=== PATIENT | female | born 1950 | race Caucasian/White ===

== ENCOUNTER → 2024-03-25 10:51 | Outpatient (REF) | payer OTHER, SELFPAY | LOC: HWRAD 10:51 | PROVIDERS: ATTENDING PHYSICIAN Family Medicine | DX: M25.511 Pain in right shoulder (principal) | CPT/HCPCS: 73030 ==

== ENCOUNTER → 2024-04-15 08:26 | Outpatient (REF) | payer OTHER, SELFPAY | LOC: RAD 08:26 | PROVIDERS: ATTENDING PHYSICIAN Family Medicine | DX: I73.9 Peripheral vascular disease, unspecified (principal) | CPT/HCPCS: 93970 ==

== ENCOUNTER → 2024-05-13 06:40 | Outpatient (REF) | payer OTHER, SELFPAY | LOC: RAD 06:40 | PROVIDERS: ATTENDING PHYSICIAN Family Medicine | DX: I73.9 Peripheral vascular disease, unspecified (principal) | CPT/HCPCS: 93922; 93925 ==

== ENCOUNTER → 2024-05-17 07:30 | Outpatient (REF) | payer OTHER, SELFPAY | LOC: MRI 3T 07:30 | PROVIDERS: ATTENDING PHYSICIAN Specialist; FAMILY PHYSICIAN Family Medicine | DX: M25.511 Pain in right shoulder (principal) | CPT/HCPCS: 73221 ==

== ENCOUNTER 2024-06-17 08:03 | Outpatient (RCR) | payer OTHER, SELFPAY | END 2024-06-17 23:59 | disposition home or self-care (01) | LOC: RPT 08:03 | PROVIDERS: ATTENDING PHYSICIAN Specialist; FAMILY PHYSICIAN Nurse Practitioner Adult Health | DX: M75.41 Impingement syndrome of right shoulder (principal); M75.01 Adhesive capsulitis of right shoulder; Z73.6 Limitation of activities due to disability | CPT/HCPCS: 97110; 97162 ==

== ENCOUNTER → 2024-07-07 09:19 | Outpatient (REF) | payer OTHER, SELFPAY | LOC: DHVS 09:19 | PROVIDERS: ATTENDING PHYSICIAN Surgery Vascular Surgery; FAMILY PHYSICIAN Family Medicine | DX: Z13.6 Encounter for screening for cardiovascular disorders (principal) | CPT/HCPCS: 76770 ==

== ENCOUNTER 2024-07-23 08:53 | Outpatient (RCR) | payer OTHER, SELFPAY | END 2024-07-23 23:59 | disposition home or self-care (01) | LOC: RPT 08:53 | PROVIDERS: ATTENDING PHYSICIAN Specialist; FAMILY PHYSICIAN Nurse Practitioner Adult Health | DX: M75.41 Impingement syndrome of right shoulder (principal); M75.01 Adhesive capsulitis of right shoulder; Z73.6 Limitation of activities due to disability | CPT/HCPCS: 97010; 97110; 97112; 97140 ==

== ENCOUNTER 2024-07-23 10:46 | Outpatient (RCR) | payer OTHER, SELFPAY | END 2024-07-23 23:59 | disposition home or self-care (01) | LOC: CRHB 10:46 | PROVIDERS: ATTENDING PHYSICIAN Surgery Vascular Surgery | DX: I70.212 Atherosclerosis of native arteries of extremities with intermittent claudication, left leg (principal) | CPT/HCPCS: 93668 ==

== ENCOUNTER 2024-08-11 09:11 | Outpatient (RCR) | payer OTHER, SELFPAY | END 2024-08-11 23:59 | disposition home or self-care (01) | LOC: RPT 09:11 | PROVIDERS: ATTENDING PHYSICIAN Specialist; FAMILY PHYSICIAN Nurse Practitioner Adult Health | DX: M75.41 Impingement syndrome of right shoulder (principal); M75.01 Adhesive capsulitis of right shoulder; Z73.6 Limitation of activities due to disability | CPT/HCPCS: 97010; 97110; 97112; 97140 ==

== ENCOUNTER 2024-08-11 10:38 | Outpatient (RCR) | payer OTHER, SELFPAY | END 2024-08-11 23:59 | disposition home or self-care (01) | LOC: CRHB 10:38 | PROVIDERS: ATTENDING PHYSICIAN Surgery Vascular Surgery | DX: I70.212 Atherosclerosis of native arteries of extremities with intermittent claudication, left leg (principal) | CPT/HCPCS: 93668 ==

== ENCOUNTER 2024-09-22 10:42 | Outpatient (RCR) | payer OTHER, SELFPAY | END 2024-09-22 23:59 | disposition home or self-care (01) | LOC: CRHB 10:42 | PROVIDERS: ATTENDING PHYSICIAN Surgery Vascular Surgery | DX: I70.212 Atherosclerosis of native arteries of extremities with intermittent claudication, left leg (principal) | CPT/HCPCS: 93668 ==

== ENCOUNTER 2024-09-29 10:42 | Outpatient (RCR) | payer OTHER, SELFPAY | END 2024-09-29 13:59 | disposition home or self-care (01) | LOC: CRHB 10:42 | PROVIDERS: ATTENDING PHYSICIAN Internal Medicine Cardiovascular Disease; FAMILY PHYSICIAN Family Medicine | DX: I70.212 Atherosclerosis of native arteries of extremities with intermittent claudication, left leg (principal) | CPT/HCPCS: 93668 ==

== ENCOUNTER → 2025-01-20 14:27 | Outpatient (REF) | payer OTHER, SELFPAY | LOC: RAD 14:27 | PROVIDERS: ATTENDING PHYSICIAN Family Medicine | DX: K59.09 Other constipation (principal) | CPT/HCPCS: 74019 ==

== ENCOUNTER → 2025-02-05 10:30 | Outpatient (REF) | payer OTHER, SELFPAY | LOC: RAD 10:30 | PROVIDERS: ATTENDING PHYSICIAN Surgery Vascular Surgery; FAMILY PHYSICIAN Family Medicine | DX: I73.9 Peripheral vascular disease, unspecified (principal) | CPT/HCPCS: 93922; 93925 ==

== ENCOUNTER 2025-02-24 19:11 | Emergency (ER) | payer OTHER, SELFPAY ==
[2025-02-24 19:19] VITALS: BP 138/57
--- NOTE | 2025-02-24 21:38 | ED.GENMED ---
History of Present Illness
General
Chief Complaint: Headache
Source: patient
Exam Limitations: none
Time Seen by Provider: 02/24/25 21:15
History of Present Illness
History of Present Illness:
74yoF with a history of hypertension, hyperlipidemia, and uterine cancer 2 years ago s/p radiation and hysterectomy presenting with her for evaluation of headaches. Patient reports new onset headaches over the past 2 to 3 weeks. Headaches
are located in the right occipital region. She reports constant pain with intermittent severe shooting pains that seem to random and radiate to the neck. She initially had some whole body pain but this has resolved. Headache is currently a 7/10
in severity. She was seen by pain management today who thought that her symptoms were originating from her neck. She was given prescriptions for prednisone, gabapentin, and Celebrex which she started today. She has an MRI scheduled for her
cervical spine on 03/06/25. She denies any rash, fevers, neck stiffness, photophobia, visual changes, head trauma.
Past History
Past History
ED Past Medical History: None
ED Past Surgical History: None
Phy Exam
General Physical Exam
General Presentation: well appearing and no apparent distress
General Skin: warm and dry
General Habitus: normal
General Mental: alert
ENT Exam
ENT Exam: TM's normal, neck supple, normocephalic and other (No scalp rash)
Additional ENT: No meningismus
Eye Exam
Eye Exam: PERRL, EOMI and conjunctiva normal
Pulmonary Exam
Pulmonary Exam: no respiratory distress
Neurological Exam
Neurological Exam: alert and no motor deficits
[place] Coma Scale
Eye Opening: Spontaneous
Verbal Response: Oriented
Motor Response: Obeys Commands
GCS Total Score: 15
Skin Exam
Skin Exam: normal color and warm/dry
Psychiatric Exam
Psychiatric Exam: normal mood/affect
Course
Orders/Labs/Results
Orders:
Orders
02/24/25 21:36
CT Head W/o Iv Contrast Urgent
Comment:
Reason For Exam: new onset headaches
0.9% Sodium Chloride 1000 ml [Nss] 1,000 ml IV BOLUS
Acetaminophen 1000MG/100Ml [Ofirmev] 1,000 mg in 100 ml IV ONCE
Acetaminophen IV Indication:: ED Narcotic Naive Pt-ONCE
Diphenhydramine [Benadryl] 12.5 mg IV NOW STA
Magnesium Sulfate 2 Gram/50 ml [Magnesium Sulfate] 2 gram in 50 ml IV NOW
02/24/25 22:02
Metoclopramide [Reglan] 5 mg PO NOW STA
02/24/25 22:06
Complete Blood Count/With Diff Urgent
Comprehensive Metabolic Panel Urgent
02/24/25 23:32
Ketorolac [Toradol] 15 mg IV NOW STA
Abnormal Lab Results
02/24/25
22:06
RBC 3.65 L 10^6/uL
(4.20-5.40)
Hgb 11.3 L g/dL
(12.0-16.0)
Hct 31.5 L %
(37.0-47.0)
MPV 11.1 H fL
(7.4-10.4)
Absolute Lymphs (auto) 0.8 L 10^3/uL
(1.2-3.4)
Neutrophils % 84.9 H %
(42.2-75.2)
Lymphocytes % 11.2 L %
(20.5-51.1)
Glucose 136 H mg/dl
(70-99)
02/24/25 22:06
02/24/25 22:06
Vital Signs
Initial and Last Documented VS:
Initial Vital Signs
Temp Pulse Resp BP Pulse Ox
98.2 F 77 16 138/57 98
02/24/25 19:19 02/24/25 19:19 02/24/25 19:19 02/24/25 19:19 02/24/25 19:19
Last Documented Vital Signs
Temp Pulse Resp BP Pulse Ox
98.2 F 61 16 128/74 99
02/24/25 19:19 02/24/25 23:58 02/24/25 23:58 02/24/25 23:58 02/24/25 23:58
MDM/Problems Addressed
Differential Diagnosis Includes:
74yoF here with new headaches x 2-3 weeks. Located in the R occipital region and radiates to the neck. Intermittent shooting pains. Saw pain management today and has an MRI cervical spine scheduled in 10 days. VSS. She is well appearing in no
distress. No nuchal rigidity or focal neuro deficits noted. Differential diagnosis includes but is not limited to: tension headache, migraine, occipital neuralgia, cervicogenic headache, mass, no rash to suggest shingles, doubt temporal arteritis as
pain is located posteriorly
Initial ED plan: Check CBC, CMP, and CT head. IV migraine cocktail and reassess.
*Critical Care Note
Total Time (30-74mins, 75-104mins- exclusive of procedures): Not Applicable
Update Note
Update Note:
Labs unremarkable and CT head is negative for acute findings. Patient is feeling improved on reassessment although continues to have intermittent shooting pains. No indication for hospitalization. Advised f/u with PCP and neurology. She was started
on prednisone and gabapentin by pain management today. ED return precautions reviewed. Patient discharged in stable condition.
ED Attending Note
-
Portions of this chart may have been created with voice recognition software.� Occasional wrong word or��sound alike� substitutions may have occurred due to the inherent limitations of voice recognition software.
Discharge Plan
Departure
Patient Disposition: Home (Routine Discharge)
Date of Disposition: 02/24/25
Time of Disposition: 23:32
Patient with high blood pressure during this ER visit?: No
Discharge Problem:
Acute headache
Instructions: Headache, Adult (DC)
Prescriptions:
No Action
atorvastatin [Lipitor] 40 mg Tablet
40 mg PO DAILY
sertraline 100 mg Tablet
100 mg PO DAILY
aspirin 81 mg Tablet,Delayed Release (Dr/Ec)
81 mg PO DAILY
calcium carbonate [Calcium 600] 600 mg calcium (1,500 mg) Tablet
600 mg PO DAILY
amlodipine 10 mg Tablet
10 mg PO DAILY
esomeprazole magnesium 40 mg Capsule,Delayed Release(Dr/Ec)
40 mg PO DAILY
raloxifene [Evista] 60 mg Tablet
60 mg PO DAILY
albuterol sulfate [ProAir HFA] 90 mcg/actuation Hfa Aerosol Inhaler
2 puff INHALATION Q6H PRN (Reason: asthma)
oxybutynin chloride 5 mg Tablet
5 mg PO DAILY
lisinopril 40 mg Tablet
40 mg PO DAILY
fluticasone propionate [Flonase] 50 mcg/actuation [place],Suspension
1 spray INTRANASAL PRN PRN (Reason: allergies)
hydrochlorothiazide 12.5 mg Tablet
12.5 mg PO DAILY
cholecalciferol (vitamin D3) [Vitamin D3] 50 mcg (2,000 unit) Capsule
50 mcg PO DAILY
Referrals:
Fabián Melton MD [Active, Neurology]
Danisha Adorno DO [Family Provider, Family Practice]
Activity Restrictions/Additional Instructions:
Please follow-up with your family doctor and neurology. Return to the ER with any new or worsening symptoms.
Interventions
Interventions:
*Risk Screen - Suicide Last Done: 02/24/25 19:19
*General Assessment Last Done: 02/24/25 22:11
*Neglect/Abuse Screening Last Done: 02/24/25 19:19
*ED- Fall Risk Assessment Last Done: 02/24/25 22:11
*ED COVID-19 Vaccine History Last Done: 02/24/25 22:11
*Nursing Disposition Last Done: 02/24/25 23:58
ED- Neurological Assessment Last Done: 02/24/25 22:11
Discharge Date and Time
Discharge Date/Time: 02/24/25 23:59
Print Language: PU[place] RICAN
[2025-02-24 22:02] VITALS: BP 130/44
[2025-02-24] MEDS: MAGNESIUM SULFATE 50 IV (22:07)
[2025-02-24] MEDS: OFIRMEV 100 IV (22:07)
[2025-02-24] MEDS: NSS 1000 IV (22:07)
[2025-02-24] MEDS: BENADRYL 12.5 MG IV (22:08)
[2025-02-24 22:10] VITALS: BMI 23.8
[2025-02-24] MEDS: REGLAN 5 MG PO (22:17)
[2025-02-24 22:33] LABS: % Basophils 0.4 % (0-2); % Immature Granulocytes 0.3 % (0-0.5); % Lymphocytes 11.2 % (20.5-51.1); % Monocytes 3.2 % (1.7-9.3); % Neutrophils 84.9 % (42.2-75.2); Absolute Lymphocytes 0.8 10^3/uL (1.2-3.4); Absolute Monocytes 0.2 10^3/uL (0.1-0.6); Absolute Neutrophils 6.1 10^3/uL (1.4-6.5); Hematocrit 31.5 % (37.0-47.0); Hemoglobin 11.3 g/dL (12.0-16.0); Mean Corp Hgb Conc. 35.9 g/dL (33.0-37.0); Mean Corpuscular Volume 86.3 fL (81.0-99.0); Mean Platelet Volume 11.1 fL (7.4-10.4); Nucleated Red Blood Cells % 0 %; Platelet Count 200 10^3/uL (130-400); Red Blood Cell Count 3.65 10^6/uL (4.20-5.40); Red Cell Dist. Width 13.2 % (11.5-14.5); White Blood Cell Count 7.2 10^3/uL (4.8-10.8)
[2025-02-24 22:38] LABS: ALT (SGPT) 24 U/L (0-35); AST (SGOT) 29 U/L (14-36); Albumin 4.1 g/dl (3.5-5.0); Alkaline Phosphatase 75 U/L (38-126); Blood Urea Nitrogen 14 mg/dl (7-17); Calcium 9.1 mg/dl (8.4-10.2); Carbon Dioxide 24 mmol/L (22-30); Chloride 107 mmol/L (98-107); Estimated Creatinine Clearance 62 ml/min; Glucose 136 mg/dl (70-99); Potassium 3.9 mmol/L (3.5-5.1); Sodium 136 mmol/L (135-145); Total Bilirubin 0.5 mg/dl (0.2-1.3); Total Protein 7.1 g/dl (6.3-8.2); eGFR > 60.00
[2025-02-24] MEDS: TORADOL 15 MG IV (23:52)
[2025-02-24 23:58] VITALS: BP 128/74
== END 2025-02-24 23:59 | disposition home or self-care (01) ==
LOC: EMR 19:11
PROVIDERS: Physician Assistant; EMERGENCY PHYSICIAN Emergency Medicine; FAMILY PHYSICIAN Family Medicine
DX: R51.9 Headache, unspecified (principal); I10 Essential (primary) hypertension; E78.00 Pure hypercholesterolemia, unspecified; Z85.42 Personal history of malignant neoplasm of other parts of uterus; Z92.3 Personal history of irradiation
CPT/HCPCS: 99284; 96365; 96375; 70450; 80053; 85025

== ENCOUNTER 2025-03-01 15:01 | Inpatient (IN) | payer OTHER, SELFPAY ==
[2025-02-27 22:25] VITALS: BP 133/65
--- NOTE | 2025-02-27 23:07 | ED.GENMED ---
History of Present Illness
General
Chief Complaint: Headache
Source: patient
Exam Limitations: none
Time Seen by Provider: 02/27/25 23:06
Nursing documentation reviewed up to this point in time: agreed with
History of Present Illness
History of Present Illness:
Vitor 74-year-old female presents the emergency department right-sided headache. She states that she has been having a headache for at least 2 weeks. She saw her pain management 2 prescribed her low-dose steroids at gabapentin. She states that
did not help. She came to the emergency department and was treated with a headache cocktail which relieved her symptoms. She states that for almost 36 hours after she was discharged from the ER, she was pain-free. She states that she felt
energetic and was able to clean the house and resume her normal activities. She reports that yesterday the pain came back and progressively worsened to its stayed prior to her ER visit. Her pain management doctor ordered an MRI scheduled for February
. She saw her PCP this morning who changed the low-dose steroids to a higher dose of prednisone. He also added an MRI of the brain. Patient states that the pain has been progressively worsening so she came into the emergency department for
evaluation.
Past History
Past History
ED Past Medical History: None
ED Past Surgical History: None
Phy Exam
General Physical Exam
General Presentation: well appearing and no apparent distress
General Skin: warm and dry
General Habitus: normal
General Mental: alert
General Hydration: appears well hydrated
ENT Exam
ENT Exam: EOMI, pharynx normal, neck supple, normocephalic and other (No nuchal rigidity)
Eye Exam
Eye Exam: PERRL, cornea clear and conjunctiva normal
Cardiovascular Exam
Cardiovascular Exam: regular rate/rhythm, no edema, no murmur and normal peripheral pulses
Pulmonary Exam
Pulmonary Exam: lungs clear, no respiratory distress, no rales, no crackles, no rhonchi, no stridor, no wheezing and no cough
Gastrointestinal Exam
Gastrointestinal Exam: normal bowel sounds, non tender, soft, no organomegaly, no pulsatile mass and non distended
Neurological Exam
Neurological Exam: alert, oriented x3, no motor deficits and speech normal
Musculoskeletal Exam
Musculoskeletal Exam: full ROM and no edema
Skin Exam
Skin Exam: normal color, warm/dry, no rash and no petechia
Psychiatric Exam
Psychiatric Exam: normal mood/affect
Course
Orders/Labs/Results
Orders:
Orders
02/27/25 23:29
0.9% Sodium Chloride 1000 ml [Nss] 1,000 ml IV BOLUS
Diphenhydramine [Benadryl] 25 mg IV NOW STA
Ketorolac [Toradol] 15 mg IV NOW STA
Metoclopramide [Reglan] 10 mg IV NOW STA
02/27/25 23:52
Complete Blood Count/With Diff Urgent
Comprehensive Metabolic Panel Urgent
[place] Progressive Urgent
PTT Urgent
Prothrombin Time Urgent
Abnormal Lab Results
02/27/25
23:52
RBC 3.43 L 10^6/uL
(4.20-5.40)
Hgb 10.6 L g/dL
(12.0-16.0)
Hct 29.7 L %
(37.0-47.0)
MPV 10.7 H fL
(7.4-10.4)
Absolute Lymphs (auto) 1.0 L 10^3/uL
(1.2-3.4)
Lymphocytes % 16.3 L %
(20.5-51.1)
Monocytes % 10.4 H %
(1.7-9.3)
Chloride 110 H mmol/L
(98-107)
Creatinine 0.5 L mg/dL
(0.6-1.0)
02/27/25 23:52
02/27/25 23:52
Vital Signs
Initial and Last Documented VS:
Initial Vital Signs
Temp Pulse Resp BP Pulse Ox
98.4 F 81 18 133/65 98
02/27/25 22:25 02/27/25 22:25 02/27/25 22:25 02/27/25 22:25 02/27/25 22:25
Last Documented Vital Signs
Temp Pulse Resp BP Pulse Ox
98.4 F 81 18 133/65 98
02/27/25 22:25 02/27/25 22:25 02/27/25 22:25 02/27/25 22:25 02/27/25 22:25
*Pulse Oximetry
Patient hypoxic: no (Pulse ox is 98% on room air)
*Critical Care Note
Total Time (30-74mins, 75-104mins- exclusive of procedures): Not Applicable
Update Note
Update Note:
Patient was sleeping for several hours. We awaken her to see how she was doing and she states that the headache has returned. She states that that has been present off and on for weeks. She does have an MRI scheduled for March 06. Patient does
not feel well enough to be discharged. She is to be admitted to the hospitalist service.
ED Attending Note
-
Portions of this chart may have been created with voice recognition software.� Occasional wrong word or��sound alike� substitutions may have occurred due to the inherent limitations of voice recognition software.
Discharge Plan
Departure
Patient Disposition: Admit
Date of Disposition: 02/28/25
Time of Disposition: 04:13
Admit to: Telemetry
Presentation/result/management discussed w/ accepting MD/DO: Hospitalist
Discharge Problem:
Headache
Instructions: Headache, Adult (DC)
Prescriptions:
No Action
atorvastatin [Lipitor] 40 mg Tablet
40 mg PO DAILY
sertraline 100 mg Tablet
100 mg PO DAILY
aspirin 81 mg Tablet,Delayed Release (Dr/Ec)
81 mg PO DAILY
calcium carbonate [Calcium 600] 600 mg calcium (1,500 mg) Tablet
600 mg PO DAILY
amlodipine 10 mg Tablet
10 mg PO DAILY
esomeprazole magnesium 40 mg Capsule,Delayed Release(Dr/Ec)
40 mg PO DAILY
raloxifene [Evista] 60 mg Tablet
60 mg PO DAILY
albuterol sulfate [ProAir HFA] 90 mcg/actuation Hfa Aerosol Inhaler
2 puff INHALATION Q6H PRN (Reason: asthma)
oxybutynin chloride 5 mg Tablet
5 mg PO DAILY
lisinopril 40 mg Tablet
40 mg PO DAILY
fluticasone propionate [Flonase] 50 mcg/actuation [place],Suspension
1 spray INTRANASAL PRN PRN (Reason: allergies)
hydrochlorothiazide 12.5 mg Tablet
12.5 mg PO DAILY
cholecalciferol (vitamin D3) [Vitamin D3] 50 mcg (2,000 unit) Capsule
50 mcg PO DAILY
Referrals:
Danisha Adorno DO [Family Provider, Family Practice]
Interventions
Interventions:
*Risk Screen - Suicide Last Done: 02/27/25 22:25
*General Assessment Last Done: 02/27/25 22:25
*Neglect/Abuse Screening Last Done: 02/27/25 22:25
*ED- Fall Risk Assessment Last Done: 02/27/25 22:25
*ED COVID-19 Vaccine History Last Done: 02/27/25 22:25
ED- Neurological Assessment Last Done: 02/27/25 23:15
Discharge Date and Time
Print Language: GE[place]GI[place]
[2025-02-27] MEDS: NSS 1000 IV (23:44)
[2025-02-27] MEDS: BENADRYL 25 MG IV (23:44)
[2025-02-27] MEDS: REGLAN 10 MG IV (23:45)
[2025-02-27] MEDS: TORADOL 15 MG IV (23:45)
[2025-02-28] LABS: % Basophils 0.3 % (0-2); % Eosinophils 0.2 % (0-6); % Immature Granulocytes 0.3 % (0-0.5); % Lymphocytes 16.3 % (20.5-51.1); % Monocytes 10.4 % (1.7-9.3); % Neutrophils 72.5 % (42.2-75.2); Absolute Monocytes 0.6 10^3/uL (0.1-0.6); Absolute Neutrophils 4.3 10^3/uL (1.4-6.5); Hematocrit 29.7 % (37.0-47.0); Hemoglobin 10.6 g/dL (12.0-16.0); Mean Corp Hgb Conc. 35.7 g/dL (33.0-37.0); Mean Corpuscular Hgb 30.9 pg (27.0-31.0); Mean Corpuscular Volume 86.6 fL (81.0-99.0); Mean Platelet Volume 10.7 fL (7.4-10.4); Nucleated Red Blood Cells % 0 %; Platelet Count 206 10^3/uL (130-400); Red Blood Cell Count 3.43 10^6/uL (4.20-5.40); Red Cell Dist. Width 13.3 % (11.5-14.5)
[2025-02-28 00:09] LABS: INR 1.06; PT 14.1 Sec (11.4-14.6)
[2025-02-28 00:11] LABS: APTT 23.4 Sec (23.4-35.0)
[2025-02-28 00:18] LABS: ALT (SGPT) 25 U/L (0-35); AST (SGOT) 34 U/L (14-36); Albumin 3.8 g/dl (3.5-5.0); Alkaline Phosphatase 57 U/L (38-126); Blood Urea Nitrogen 12 mg/dl (7-17); Calcium 8.8 mg/dl (8.4-10.2); Carbon Dioxide 23 mmol/L (22-30); Chloride 110 mmol/L (98-107); Glucose 97 mg/dl (70-99); Potassium 3.8 mmol/L (3.5-5.1); Sodium 138 mmol/L (135-145); Total Bilirubin 0.7 mg/dl (0.2-1.3); Total Protein 6.7 g/dl (6.3-8.2); eGFR > 60.00
[2025-02-28 04:26] VITALS: BP 146/49
--- NOTE | 2025-02-28 04:47 | HPS.HSE ---
Family Physician
-
Family Physician: Danisha Adorno
Chief Complaint
-
Headache
History of Present Illness
This is a 74-year-old female with past medical history significant for hypertension, hyperlipidemia, uterine cancer status post hysterectomy and radiation therapy presents to the emergency department for new onset headaches over the past 3 weeks.
Patient denies prior history of headaches. Over the last 3 weeks she has been having headaches that are located in the right occipital region. She reports no history of headache syndromes and rarely has headaches. She reports gradual onset over
the last 3 weeks where she has intermittent episodes but now seems to have had 2 severe episodes over the last 4 days. She reports the headache is in the right parietal and occipital region and is sharp stabbing and radiates down to the neck. She
denies any temporal involvement. She denies any vision changes. She denies having any fevers or chills. She reports that she has had some generalized aches and pains associated with the headaches when it started but not currently. She denies any
rash. Patient denies any sinus congestion, rhinorrhea or sore throat. She denies any focal logical deficits such as numbness tingling weakness or difficulty with balance. She was seen by pain management at to have symptoms that is consistent with
occipital neuralgia. She completed a prednisone taper, she is taking gabapentin 600 twice daily as well as Celebrex. She has an MRI of the cervical spine pending. When she was seen in the emergency department on February she had a CT scan which
was negative for any acute intracranial process.
Today patient was afebrile, blood pressure was 146/50 with pulse of 57 satting 97% on room air.
CBC was unremarkable. Electrolytes BUN/creatinine were normal.
She had received Toradol, Benadryl, normal saline and Reglan. According to spouse patient pain improving on for out of sleep but now she has a constant dull ache.
Medical History
Past Medical History
Past Medical History: Reports Cancer (Uterine cancer status post radiation and hysterectomy), HTN and Hypercholesterolemia
Past Surgical History: Reports Gynocological (Hysterectomy)
Social History
Tobacco: Non-smoker
Alcohol: None
Drug: None
Personal:
Living: With Family
Employment: Retired
Family History
Family History: Not pertinent
Allergies / Home Medications
Allergies reflects when Allergies were last updated in [facility].
Home Medications with original date entered in [facility]
Allergy/Medication List:
Allergies
Allergy/AdvReac Type Severity Reaction Status Date / Time
No Known Allergies Allergy Verified 02/24/25 19:19
Home Medications
albuterol sulfate 90 mcg/actuation aerosol inhaler (ProAir HFA) 2 puff inhalation Q6H PRN asthma 01/02/23
amlodipine 10 mg tablet 10 mg PO DAILY 01/02/23
aspirin 81 mg tablet,delayed release 81 mg PO DAILY 01/02/23
atorvastatin 40 mg tablet (Lipitor) 40 mg PO DAILY 01/02/23
calcium carbonate (Calcium 600) 600 mg PO DAILY 01/02/23
cholecalciferol (vitamin D3) 50 mcg (2,000 unit) capsule (Vitamin D3) 50 mcg PO DAILY 01/02/23
esomeprazole magnesium 40 mg capsule,delayed release 40 mg PO DAILY 01/02/23
fluticasone propionate 50 mcg/actuation nasal spray,suspension 1 spray intranasal PRN PRN allergies 01/02/23
hydrochlorothiazide 12.5 mg tablet 12.5 mg PO DAILY 01/02/23
lisinopril 40 mg tablet 40 mg PO DAILY 01/02/23
oxybutynin chloride 5 mg tablet 5 mg PO DAILY 01/02/23
raloxifene 60 mg tablet (Evista) 60 mg PO DAILY 01/02/23
sertraline 100 mg tablet 100 mg PO DAILY 01/02/23
Review of Systems
-
History Source: Patient
Constitutional: Reports No Symptoms
EENT: Reports No Symptoms
Respiratory: Reports No Symptoms
Cardiac: Reports No Symptoms
Abdomen/GI: Reports No Symptoms
: Reports No Symptoms
Musculoskeletal: Reports No Symptoms
Skin: Reports No Symptoms
Neurological: Reports Headache
Endocrine: Reports No Symptoms
Hematologic/Lymphatic: Reports No Symptoms
Psych: Reports No Symptoms
Physical Exam
Vital Signs
Vital Signs
Temp Pulse Resp BP Pulse Ox
98.4 F 57 16 146/49 97
02/27/25 22:25 02/28/25 04:26 02/28/25 04:26 02/28/25 04:26 02/28/25 04:26
Physical Exam
General: Well Developed, Well Nourished and No Apparent Distress
HEENT: NormoCephalic, Moist mucous membranes and Atraumatic
Respiratory: Clear
Cardiac: S1/S2 and Regular Rhythm; No Murmur or Rub
GI: Soft, Non Tender, Non Distended and Normal Bowel Sounds; No Organomegaly
Rectal: Deferred by Provider
Musculoskeletal: No Clubbing, No Cyanosis and No Edema
Skin: No Rash
Neuro: Nonfocal/grossly intact
Hematologic/Lymphatic: No Lymphadenopathy
Psych: Anxious
Laboratory Results
-
02/27/25 23:52
02/27/25 23:52
Laboratory Results
PT 14.1 Sec (11.4-14.6) 02/27/25 23:52
INR 1.06 02/27/25 23:52
APTT 23.4 Sec (23.4-35.0) 02/27/25 23:52
Total Bilirubin 0.7 mg/dl (0.2-1.3) 02/27/25 23:52
AST 34 U/L (14-36) 02/27/25 23:52
ALT 25 U/L (0-35) 02/27/25 23:52
Alkaline Phosphatase 57 U/L (38-126) 02/27/25 23:52
Data Reviewed
-
CT Scan: Report Reviewed by me
Lab Data: Labs Reviewed by me
Old Records: Reviewed
Impression/Plan
-
IMPRESSION:
74 y.o female with new onset headaches localized to the right parietal and occipital region with sharp/stabbing quality and shooting sensation to the neck. No focal deficits. No rash. No fevers, chills or neck stiffness. No tearing or
conjunctival injection. CT head negative for acute intracranial process. Has outpatient w/u raising concern for occipital neuralagia. Differential includes migraine, GCA, unlikely dissection given duration of symptoms and otherwise stable.
PLAN:
Headache - Occipital neuralgia/cervicogenic headache vs migraines or GCA
- admit to med/surg
- continue with analgesic measures IV porchloperazine + benadryl and dexamethasone
- prn toradol
- check esr
- CT negative, no indication for CTA/MRI
- neurology consultation
DVT PPX - SCDs
Code Status - Full Code
[2025-02-28] MEDS: OFIRMEV 100 IV (05:44)
[2025-02-28] MEDS: FLUSH (NSS) 1 FLUSH IV (05:45)
[2025-02-28 05:53] LABS: Erythrocyte Sed Rate 13 mm/hour (0-20)
--- NOTE | 2025-02-28 07:38 | W.PN.HOSP.TC ---
Today's Communication/Plan
-
Neurology consult.
Trial of Reglan/Magnesium
Assessment / Plan
Assessment / Plan
Impression:
74 y.o female with new onset headaches localized to the right parietal and occipital region with sharp/stabbing quality and shooting sensation to the neck. No focal deficits. No rash. No fevers, chills or neck stiffness. No tearing or
conjunctival injection. CT head negative for acute intracranial process. Has outpatient w/u raising concern for occipital neuralagia. Differential includes migraine, GCA, unlikely dissection given duration of symptoms and otherwise stable.
Assessment/plan:
Headache - Occipital neuralgia/cervicogenic headache vs migraines or GCA
- admit to med/surg
- continue with analgesic measures IV porchloperazine + benadryl and dexamethasone
- prn toradol
- check esr
- CT negative, no indication for CTA/MRI
- neurology consultation
02/28
Patient still with headaches.
Neurology consulted.
Trial of Reglan/magnesium
Hypertension
Blood pressure elevated today morning at 178/62.
Resumed blood pressure meds
Hyperlipidemia.
Continue atorvastatin
Depression.
Continue sertraline
CODE STATUS: Full code
DVT prophylaxis:SCDs
Diet: cardiac diet
Disposition: Awaiting neurology input
Total time spent on today's encounter was 65 minutes which included time spent in counseling the patient/family regarding diagnosis and treatment plan as listed above, goals of care, and symptom management. Case was discussed with nursing staff,
specialists, and care coordinators/case management. All labs and imaging personally reviewed by me. Remainder the time spent in detailed review of previous records, lab data, imaging, and other medical provider documentation.
Anticipated Discharge: Within 24 hours
Subjective/Interval History
-
Date of Service: February 28, 2025
Patient seen and examined at bedside, patient still with headaches but denies any chest pain or shortness of breath.
Objective Data
-
Labs:
Laboratory Results
02/27/25
23:52
WBC 6.0
Hgb 10.6 L
Hct 29.7 L
Plt Count 206
PT 14.1
INR 1.06
APTT 23.4
Sodium 138
Potassium 3.8
Chloride 110 H
Carbon Dioxide 23
BUN 12
Creatinine 0.5 L
Glucose 97
Calcium 8.8
Total Bilirubin 0.7
AST 34
ALT 25
Alkaline Phosphatase 57
Vital Signs:
Vital Signs
Temp Pulse Resp BP Pulse Ox
98.4 F 57 16 146/49 97
02/27/25 22:25 02/28/25 04:26 02/28/25 04:26 02/28/25 04:26 02/28/25 04:26
Physical Exam
-
General: Well Developed, Well Nourished, No Apparent Distress and Comfortable
HEENT: Normocephalic, Atraumatic, Moist Mucous Membranes, No Ptosis, PERRLA and Nose Appears Normal
Respiratory: Clear to Auscultation and Non Labored Respirations
Cardiac: Regular Rhythm and S1/S2
Breast: Deferred by me
GI: Soft, Nontender, Nondistended and Normal Bowel Sounds
Genito-urinary: No Costovertebral Tender
Musculoskeletal: No Clubbing, No Cyanosis and No Edema
Skin: Warm
Neuro: Awake, Alert, Oriented, AO x 3 and No Motor Deficits
Psych: Calm
Data Reviewed
-
Diagnostic Radiology: Image personally visualized and interpreted and Report Reviewed by me
CT Scan: Image personally visualized and interpreted and Report Reviewed by me
Ultrasound: Image personally visualized and interpreted and Report Reviewed by me
MRI: Image personally visualized and interpreted and Report Reviewed by me
Medical Tests (Nuc Med, Echo etc): Image personally visualized and interpreted and Report Reviewed by me
Labs: Labs Reviewed by me
Old Records: Reviewed
[2025-02-28 08:56] VITALS: BP 178/62
[2025-02-28] MEDS: EVISTA 60 MG PO (09:30)
[2025-02-28] MEDS: LIPITOR 40 MG PO (09:30)
[2025-02-28] MEDS: DITROPAN 5 MG PO (09:30)
[2025-02-28] MEDS: ZOLOFT 100 MG PO (09:31)
[2025-02-28] MEDS: ORETIC 12.5 MG PO (09:31)
[2025-02-28] MEDS: TORADOL 15 MG IV ×2 (09:31→18:13)
[2025-02-28] MEDS: ASPIR LOW (ENTERIC COATED) 81 MG PO (09:31)
[2025-02-28] MEDS: NORVASC 10 MG PO (09:31)
[2025-02-28] MEDS: COMPAZINE 10 MG IV (09:32)
[2025-02-28] MEDS: BENADRYL 25 MG IV (09:32)
[2025-02-28] MEDS: DECADRON 4 MG IV (09:33)
[2025-02-28] MEDS: MAGNESIUM SULFATE 100 IV (10:01)
[2025-02-28] MEDS: REGLAN 10 MG IV (10:12)
[2025-02-28 11:34] VITALS: BP 154/54
[2025-02-28] MEDS: KENALOG-40 40 MG IM (14:22)
[2025-02-28] MEDS: SENSORCAINE 0.5% SINGLE DOSE 30 ML INJ ×2 (14:22→15:33)
[2025-02-28 15:22] LABS: C-Reactive Protein < 5.00 mg/L (0.0-10.00)
[2025-02-28 15:33] VITALS: BP 124/55
[2025-02-28 15:37] VITALS: BMI 22.7
--- NOTE | 2025-02-28 16:25 | CON.NEURO ---
Neuro Assessment/Plan
Assessment
ESR and CRP normal
Head CT imgs rev'd age appropriate atrophy and microvascular changes
History and Exam consistent with right occipital neuralgia and trigger point myalgia, I did not find any atlanto axial subluxation amenable to OMT, performed right occipital nerve block and trapezius trigger point injections, initially with partial
relief but still episodic stabbing/shooting in the distribution; repeated right occipital nerve block with larger volume and 3 more paraspinals trigger points with no effect.
I have no alternative diagnosis and will obtain brain MRI w/o and with contrast
Consultation
Order
Date of Consultation: 02/28/25
Requesting Provider: Cristian Hdz
Reason for Consult: headache
Subjective/Objective
Subjective Data
Date of Service: February 28, 2025
This is a 74-year-old female with past medical history significant for hypertension, hyperlipidemia, uterine cancer status post hysterectomy and radiation therapy presents to the emergency department for new onset headaches over the past 3 weeks.
Patient denies prior history of headaches. Over the last 3 weeks she has been having headaches that are located in the right occipital region. She reports no history of headache syndromes and rarely has headaches. She reports gradual onset over
the last 3 weeks where she has intermittent episodes but now seems to have had 2 severe episodes over the last 4 days. She reports the headache is in the right parietal and occipital region and is sharp stabbing and radiates down to the neck. She
denies any temporal involvement. She denies any vision changes. She denies having any fevers or chills. She reports that she has had some generalized aches and pains associated with the headaches when it started but not currently. She denies any
rash. Patient denies any sinus congestion, rhinorrhea or sore throat. She denies any focal logical deficits such as numbness tingling weakness or difficulty with balance. She was seen by pain management at to have symptoms that is consistent with
occipital neuralgia. She completed a prednisone taper, she is taking gabapentin 600 twice daily as well as Celebrex. She has an MRI of the cervical spine pending. When she was seen in the emergency department on February for she had a CT scan which
was negative for any acute intracranial process.
She indicates sharp stabbing shooting pain in the right occipital nerve distribution, severe. no weakness or numbness, no photophobia/phonophobia
Objective Data
Vital Signs
Temp Pulse Resp BP Pulse Ox
36.8 C 70 16 124/55 96
02/28/25 15:33 02/28/25 15:33 02/28/25 15:33 02/28/25 15:33 02/28/25 15:33
Lab Results
02/27/25 23:52
02/27/25 23:52
PT 14.1 Sec (11.4-14.6) 02/27/25 23:52
INR 1.06 02/27/25 23:52
APTT 23.4 Sec (23.4-35.0) 02/27/25 23:52
Sodium 138 mmol/L (135-145) 02/27/25 23:52
Potassium 3.8 mmol/L (3.5-5.1) 02/27/25 23:52
BUN 12 mg/dl (7-17) 02/27/25 23:52
Glucose 97 mg/dl (70-99) 02/27/25 23:52
Calcium 8.8 mg/dl (8.4-10.2) 02/27/25 23:52
Patient Allergies
No Known Allergies Allergy (Verified 02/24/25 19:19)
Physical Exam
-
AAOx3, speech clear, language intact
VFF, EOMI, face symmetric
no pronator drift, strength symmetric
cervical rotation substantially decreased but symmetric ~20 degrees
tender right occipital nerve, right C3 paraspinal trigger point, bilateral trapezius trigger point, right temporalis
palpated left C3 and C4 trigger points
Medications
-
Active Medications
Generic Name Dose Route Start Last Admin
Trade Name Freq PRN Reason Stop Dose Admin
Acetaminophen 650 mg 02/28/25 08:55
Acetaminophen 325 Mg Tablet PO 03/28/25 08:54
Q4HPRN PRN
mild pain/DELGADO/temp> 100.4F
Albuterol 2 puff 02/28/25 08:55
Albuterol Hfa [90 Mcg/Dose] Inhaler INH
R Q6 PRN
ASTHMA
Protocol
Amlodipine Besylate 10 mg 02/28/25 08:55 02/28/25 09:31
Amlodipine 10 Mg Tablet PO 03/28/25 08:54 10 mg
DAILY LASHONDA Administration
Aspirin 81 mg 02/28/25 08:55 02/28/25 09:31
Aspirin 81 Mg (Enteric Coated) Tablet PO 03/28/25 08:54 81 mg
DAILY LASHONDA Administration
Atorvastatin Calcium 40 mg 02/28/25 08:55 02/28/25 09:30
Atorvastatin (Lipitor) 40 Mg Tablet PO 03/28/25 08:54 40 mg
DAILY LASHONDA Administration
Hydrochlorothiazide 12.5 mg 02/28/25 08:55 02/28/25 09:31
Hydrochlorothiazide 12.5 Mg Tablet PO 03/28/25 08:54 12.5 mg
DAILY LASHONDA Administration
Ketorolac Tromethamine 15 mg 02/28/25 08:55 02/28/25 09:31
Ketorolac 15 Mg/Ml Injection IV 03/05/25 08:54 15 mg
Q6HPRN PRN Administration
moderate pain
Lisinopril 40 mg 03/01/25 08:00
Lisinopril 20 Mg Tablet PO 03/29/25 07:59
DAILY LASHONDA
Oxybutynin Chloride 5 mg 02/28/25 08:55 02/28/25 09:30
Oxybutynin 5 Mg Tablet PO 03/28/25 08:54 5 mg
DAILY LASHONDA Administration
Raloxifene HCl 60 mg 02/28/25 08:55 02/28/25 09:30
Raloxifene 60 Mg Tablet PO 03/28/25 08:54 60 mg
DAILY LASHONDA Administration
Sertraline HCl 100 mg 02/28/25 08:55 02/28/25 09:31
Sertraline 100 Mg Tablet PO 03/28/25 08:54 100 mg
DAILY LASHONDA Administration
Sodium Chloride 0 flush 02/28/25 06:00 02/28/25 05:45
Sodium Chloride 0.9% (Flush) Syringe IV 03/28/25 05:59 1 flush
PER PROTOCOL LASHONDA Administration
Home Medications
�Medication �Instructions �Recorded
albuterol sulfate 90 mcg/actuation 2 puff inhalation Q6H PRN asthma 01/02/23
aerosol inhaler (ProAir HFA)
amlodipine 10 mg tablet 10 mg PO DAILY 01/02/23
aspirin 81 mg tablet,delayed 81 mg PO DAILY 01/02/23
release
atorvastatin 40 mg tablet (Lipitor) 40 mg PO DAILY 01/02/23
calcium carbonate (Calcium 600) 600 mg PO DAILY 01/02/23
cholecalciferol (vitamin D3) 50 50 mcg PO DAILY 01/02/23
mcg (2,000 unit) capsule (Vitamin
D3)
esomeprazole magnesium 40 mg 40 mg PO DAILY 01/02/23
capsule,delayed release
fluticasone propionate 50 1 spray intranasal PRN PRN 01/02/23
mcg/actuation nasal allergies
spray,suspension
hydrochlorothiazide 12.5 mg tablet 12.5 mg PO DAILY 01/02/23
lisinopril 40 mg tablet 40 mg PO DAILY 01/02/23
oxybutynin chloride 5 mg tablet 5 mg PO DAILY 01/02/23
raloxifene 60 mg tablet (Evista) 60 mg PO DAILY 01/02/23
sertraline 100 mg tablet 100 mg PO DAILY 01/02/23
--- NOTE | 2025-02-28 16:42 | W.PN.UPDATE ---
Update Note
Progress Note Update
procedure note
46771 occipital nerve block
trigger point inj 3+
in a 10 cc syringe 23 g x 1 in needle was drawn 7 cc bupivacaine 0.5% and 40 mg Kenalog-40
right occipital nerve, at splenius capitis, injected 4 cc
bilateral trapezius trigger points 2 cc each
patient reported partial relief lasting < 1 hr, spoke with patient and decided to repeat injections with bupivacaine only
right occipital nerve block injected 8cc
right c3 paraspinal and left c2 and c3 paraspinal trigger points injected 2 cc each
afterwards patient report no effect
total meds: bupivacaine 21 cc (105 mg) and Kenalog 40 mg
[2025-02-28 23:00] VITALS: BP 142/57
[2025-02-28] MEDS: TYLENOL 650 MG PO (23:20)
[2025-03-01] MEDS: TORADOL 15 MG IV ×2 (05:18→14:08)
[2025-03-01 07:04] LABS: Blood Urea Nitrogen 20 mg/dl (7-17); Carbon Dioxide 24 mmol/L (22-30); Chloride 105 mmol/L (98-107); Glucose 111 mg/dl (70-99); Potassium 3.8 mmol/L (3.5-5.1); Sodium 137 mmol/L (135-145); eGFR > 60.00
[2025-03-01 07:26] LABS: Hemoglobin 12.2 g/dL (12.0-16.0); Mean Corp Hgb Conc. 34.9 g/dL (33.0-37.0); Mean Corpuscular Hgb 30.3 pg (27.0-31.0); Mean Corpuscular Volume 87.1 fL (81.0-99.0); Mean Platelet Volume 11.2 fL (7.4-10.4); Platelet Count 259 10^3/uL (130-400); Red Blood Cell Count 4.02 10^6/uL (4.20-5.40); Red Cell Dist. Width 13.1 % (11.5-14.5); White Blood Cell Count 8.3 10^3/uL (4.8-10.8)
[2025-03-01 07:27] VITALS: BP 144/54
[2025-03-01] MEDS: ZOLOFT 100 MG PO (08:17)
[2025-03-01] MEDS: ASPIR LOW (ENTERIC COATED) 81 MG PO (08:17)
[2025-03-01] MEDS: EVISTA 60 MG PO (08:17)
[2025-03-01] MEDS: ORETIC 12.5 MG PO (08:17)
[2025-03-01] MEDS: LIPITOR 40 MG PO (08:17)
[2025-03-01] MEDS: ZESTRIL 40 MG PO (08:18)
[2025-03-01] MEDS: NORVASC 10 MG PO (08:18)
[2025-03-01] MEDS: DITROPAN 5 MG PO (08:21)
[2025-03-01] MEDS: TYLENOL 650 MG PO (08:29)
[2025-03-01] MEDS: FIORICET 1 TAB PO (09:49)
--- NOTE | 2025-03-01 10:16 | W.PN.NEURO.1 ---
Addendum entered and electronically signed by Bin Middleton MD 03/01/25 17:44:
Studies reviewed.
I have personally examined the patient. I reviewed and agree with the FRONT END SPECIALIST's Note.
My addenda:
Awake, alert, interactive. No acute distress.
Speech intact.
Follows 2-step requests w/o difficulty. No tremor.
Extra-ocular movements grossly intact.
Facial movements full and symmetric. Hearing intact to normal conversational volume.
Normal UE movements bilaterally.
Neck: full ROM.
Chest: no dyspnea
Heart: no JVD
Ext: (-) Clubbing, (-) Cyanosis, (-) Edema
IMPRESSIONS/RECOMMENDATIONS:
Subacute onset of right sided headache. The patient does not clearly make criteria for migraine although she does admit to photophobia and phonophobia.
Provide multi medication therapy for remediation of the patient's symptoms, as listed below
Provide diphenhydramine 50 mg at bedtime as part of the regimen for headache
Consider repeat or alteration of above and below regimen based on results
D/W patient / family
All questions answered.
Will continue to follow patient.
Original Note:
Today's Communication / Plan
-
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
-Ketorolac, Diphenhydramine and Metoclopramide every 6 hours as needed for migraine
-give Valproic Acid 1000 mg now
-Rizatriptan 10 mg as needed, may repeat dosing after 2 hours if needed do not exceed greater than 30 mg in 24 hours
-methylprednisolone 1000 mg now
-increase sertraline from 100 mg to 150 mg daily
Neuro Assessment/Plan
Assessment
ESR and CRP normal
Head CT images reviewed age appropriate atrophy and microvascular changes
Brain MRI with mild diffuse cerebral and cerebellar volume loss, mild periventricular white matter leukoaraiosis
Plan
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
-Ketorolac, Diphenhydramine and Metoclopramide every 6 hours as needed for migraine
-give Valproic Acid 1000 mg now
-Rizatriptan 10 mg as needed, may repeat dosing after 2 hours if needed do not exceed greater than 30 mg in 24 hours
-methylprednisolone 1000 mg now
-increase sertraline from 100 mg to 150 mg daily
Subjective/Objective
Subjective Data
Date of Service: March 01, 2025
Does not get headaches except when she is stressed or 'sinus headaches.' Currently getting soft jabs to right side of head and without medication is constant. States the trigger point shots yesterday helped but only lasts a few hours. Unclear if
associated photophobia and phonophobia. Denies tearing eyes or nose.
Objective Data
Vital Signs
Temp Pulse Resp BP Pulse Ox
98.4 F 60 16 144/54 98
03/01/25 07:27 03/01/25 08:18 03/01/25 07:27 03/01/25 08:18 03/01/25 07:27
Lab Results
03/01/25 06:15
03/01/25 06:15
PT 14.1 Sec (11.4-14.6) 02/27/25 23:52
INR 1.06 02/27/25 23:52
APTT 23.4 Sec (23.4-35.0) 02/27/25 23:52
Sodium 137 mmol/L (135-145) 03/01/25 06:15
Potassium 3.8 mmol/L (3.5-5.1) 03/01/25 06:15
BUN 20 mg/dl (7-17) H 03/01/25 06:15
Glucose 111 mg/dl (70-99) H 03/01/25 06:15
Calcium 9.0 mg/dl (8.4-10.2) 03/01/25 06:15
Patient Allergies
No Known Allergies Allergy (Verified 02/24/25 19:19)
Review of Systems
-
History Source: Patient
Constitutional: Sleep Disturbance
Respiratory: No Symptoms
Cardiac: No Symptoms
Abdomen/GI: No Symptoms
Neuro: Headache
Physical Exam
-
General: Appears Stated Age
HEENT: Normocephalic, Atraumatic and Anicteric
Neck: Full Range of Motion
Respiratory: No Dyspnea
Cardiac: No JVD
GI: Non-distended
Skin: Warm and Dry
Extremities: No Clubbing, No Cyanosis and No Edema
Psych: Intact Judgement/Insight
Extended Neurological Exam
Mood & Affect: Other (flat affect)
Attention Span & Concentration: Awake, Alert, Interactive and No Difficulty with 2 Step Request
Memory: Unremarkable
Tremor: Hand Tremor Absent and Head Tremor Absent
Speech: Quality Unremarkable, Quantity Unremarkable and Rate of Production Unremarkable
Cranial Nerve II: Left Eye: Visual Marks Grossly Intact
Cranial Nerve II: Right Eye: Visual Marks Grossly Intact
Cranial Nerves III, IV, : Extraocular Movement: Extraocular Movement Full in all Directions
Cranial Nerve VII: Facial Symmetry: Normal Facial Symmetry
Muscle Strength, Overall: Full Throughout
Muscle Bulk & Tone: Bulk Unremarkable and Tone Unremarkable
Data Reviewed
-
CT Head: Report Reviewed and Image Reviewed
MRA Head: Report Reviewed and Image Reviewed
Labs: Report Reviewed
Old Records: Summarized
--- NOTE | 2025-03-01 10:54 | CM ---
Patient seen at bedside
IA completed
OBS status - form explained & signed. In chart
Lives in a 2 story home with , 2 steps to enter, full bath on 1st floor
PLOF: Independent, no device
DME: Walker, cane, wheelchair, grab bars
Denies VN, has had outpatient PT in past at outpatient
Denies insecurities
PCP: Danisha Adorno
Pharmacy: [facility], [place]
PLAN: Home, currently no needs, CM to continue to follow
[2025-03-01 13:57] LABS: Lyme Antibody Screen, EIA Presump. Positive (Negative)
[2025-03-01] MEDS: DEPACON 60 MG IV (14:49)
--- NOTE | 2025-03-01 15:01 | W.PN.HOSP.TC ---
Today's Communication/Plan
-
Patient still with headaches, upgrade to inpatient.
Assessment / Plan
Assessment / Plan
Impression:
74 y.o female with new onset headaches localized to the right parietal and occipital region with sharp/stabbing quality and shooting sensation to the neck. No focal deficits. No rash. No fevers, chills or neck stiffness. No tearing or
conjunctival injection. CT head negative for acute intracranial process. Has outpatient w/u raising concern for occipital neuralagia. Differential includes migraine, GCA, unlikely dissection given duration of symptoms and otherwise stable.
Seen by neurology, patient still with headache.
Trigger points injection with no improvement.
MRI brain done showed
1. Mild diffuse cerebral and cerebellar volume loss.
2. Mild periventricular white matter leukoaraiosis.
3. Severe left-sided facet joint arthrosis and small central disc herniation at C3/C4 causing mild spinal cord compression and central canal stenosis.
Neurology commended:
Ketorolac, Diphenhydramine and Metoclopramide every 6 hours as needed for migraine
-give Valproic Acid 1000 mg now
-Rizatriptan 10 mg as needed, may repeat dosing after 2 hours if needed do not exceed greater than 30 mg in 24 hours
-methylprednisolone 1000 mg now
-increase sertraline from 100 mg to 150 mg daily
Assessment/plan:
Headache - Occipital neuralgia/cervicogenic headache vs migraines or GCA
- admit to med/surg
- continue with analgesic measures IV porchloperazine + benadryl and dexamethasone
- prn toradol
- check esr
- CT negative, no indication for CTA/MRI
- neurology consultation
02/28
Patient still with headaches.
Neurology consulted.
Trial of Reglan/magnesium
03/01
MRI brain done showed
1. Mild diffuse cerebral and cerebellar volume loss.
2. Mild periventricular white matter leukoaraiosis.
3. Severe left-sided facet joint arthrosis and small central disc herniation at C3/C4 causing mild spinal cord compression and central canal stenosis.
Discussed with patient and at bedside.
Neurology recommendation as above
Hypertension
Blood pressure elevated today morning at 178/62.
Resumed blood pressure meds
Hyperlipidemia.
Continue atorvastatin
Depression.
Continue sertraline
CODE STATUS: Full code
DVT prophylaxis:SCDs
Diet: cardiac diet
Disposition: Patient still with headaches, upgrade to inpatient.
Total time spent on today's encounter was 65 minutes which included time spent in counseling the patient/family regarding diagnosis and treatment plan as listed above, goals of care, and symptom management. Case was discussed with nursing staff,
specialists, and care coordinators/case management. All labs and imaging personally reviewed by me. Remainder the time spent in detailed review of previous records, lab data, imaging, and other medical provider documentation.
Anticipated Discharge: 24 - 48 hours
Subjective/Interval History
-
Date of Service: March 01, 2025
Patient seen and examined at bedside, at bedside, patient still with significant headache.
Seen by neurology today and medication adjusted.
MRI result discussed with patient at bedside. Denies any chest pain or shortness of breath.
Objective Data
-
Labs:
Laboratory Results
03/01/25
06:15
WBC 8.3
Hgb 12.2
Hct 35.0 L
Plt Count 259 D
Sodium 137
Potassium 3.8
Chloride 105
Carbon Dioxide 24
BUN 20 H
Creatinine 0.6
Glucose 111 H
Calcium 9.0
Vital Signs:
Vital Signs
Temp Pulse Resp BP Pulse Ox
98.4 F 60 16 144/54 98
03/01/25 07:27 03/01/25 08:18 03/01/25 07:27 03/01/25 08:18 06/09/25 07:27
I&O
02/28/25 03/01/25 03/02/25
06:59 06:59 06:59
Intake Total 240 / 240
Balance 240 / 240
Physical Exam
-
General: Well Developed, Well Nourished, No Apparent Distress and Comfortable
HEENT: Normocephalic, Atraumatic, Moist Mucous Membranes, No Ptosis, PERRLA and Nose Appears Normal
Respiratory: Clear to Auscultation and Non Labored Respirations
Cardiac: Regular Rhythm and S1/S2
Breast: Deferred by me
GI: Soft, Nontender, Nondistended and Normal Bowel Sounds
Genito-urinary: No Costovertebral Tender
Musculoskeletal: No Clubbing, No Cyanosis and No Edema
Skin: Warm
Neuro: Awake, Alert, Oriented, AO x 3 and No Motor Deficits
Psych: Calm
Data Reviewed
-
Diagnostic Radiology: Image personally visualized and interpreted and Report Reviewed by me
CT Scan: Image personally visualized and interpreted and Report Reviewed by me
Ultrasound: Image personally visualized and interpreted and Report Reviewed by me
MRI: Image personally visualized and interpreted and Report Reviewed by me
Medical Tests (Nuc Med, Echo etc): Image personally visualized and interpreted and Report Reviewed by me
Labs: Labs Reviewed by me
Old Records: Reviewed
[2025-03-01 15:35] VITALS: BP 130/51
[2025-03-01] MEDS: SOLU-MEDROL 258 MG IV (15:54)
[2025-03-01] MEDS: PEPCID 20 MG PO (15:54)
[2025-03-01] MEDS: BENADRYL 50 MG PO (21:05)
[2025-03-01 23:19] VITALS: BP 130/42
[2025-03-02 06:00] VITALS: BMI 22.1
[2025-03-02 07:00] VITALS: BP 126/39
[2025-03-02 07:01] LABS: Hemoglobin 12.1 g/dL (12.0-16.0); Mean Corp Hgb Conc. 35.6 g/dL (33.0-37.0); Mean Corpuscular Hgb 30.8 pg (27.0-31.0); Mean Corpuscular Volume 86.5 fL (81.0-99.0); Mean Platelet Volume 10.9 fL (7.4-10.4); Platelet Count 254 10^3/uL (130-400); Red Blood Cell Count 3.93 10^6/uL (4.20-5.40); Red Cell Dist. Width 13.1 % (11.5-14.5); White Blood Cell Count 8.6 10^3/uL (4.8-10.8)
[2025-03-02 07:44] LABS: Blood Urea Nitrogen 23 mg/dl (7-17); Calcium 9.2 mg/dl (8.4-10.2); Carbon Dioxide 24 mmol/L (22-30); Chloride 104 mmol/L (98-107); Estimated Creatinine Clearance 62 ml/min; Glucose 135 mg/dl (70-99); Potassium 4.4 mmol/L (3.5-5.1); Sodium 136 mmol/L (135-145); eGFR > 60.00
--- NOTE | 2025-03-02 08:33 | W.PN.NEURO.1 ---
Today's Communication / Plan
-
-no acute needs, may be discharged from neurologic standpoint
-may continue Rizatriptan 10 mg as needed, may repeat dosing after 2 hours if needed do not exceed greater than 30 mg in 24 hours
-continue sertraline 150 mg daily
-follow up with pain management doctor, Dr. Basil Tirado
Neuro Assessment/Plan
Assessment
ESR and CRP normal
Head CT images reviewed age appropriate atrophy and microvascular changes
Brain MRI with mild diffuse cerebral and cerebellar volume loss, mild periventricular white matter leukoaraiosis
Plan
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
-no acute needs, may be discharged from neurologic standpoint
-may continue Rizatriptan 10 mg as needed, may repeat dosing after 2 hours if needed do not exceed greater than 30 mg in 24 hours
-continue sertraline 150 mg daily
-follow up with pain management doctor, Dr. Basil Tirado
Plan of care discussed wt Dr. Middleton and patient, all questions encouraged and answered.
Subjective/Objective
Subjective Data
Date of Service: March 02, 2025
Still some right sided head pain but feels much better today than yesterday. After medication medications pain went from 9/10 to 4/10. Currently pain is at 2/10.
Objective Data
Vital Signs
Temp Pulse Resp BP Pulse Ox
98.9 F 63 16 126/39 97
03/02/25 07:00 03/02/25 07:00 03/02/25 07:00 03/02/25 07:00 03/02/25 07:00
Lab Results
03/02/25 06:40
03/02/25 06:40
PT 14.1 Sec (11.4-14.6) 02/27/25 23:52
INR 1.06 02/27/25 23:52
APTT 23.4 Sec (23.4-35.0) 02/27/25 23:52
Sodium 136 mmol/L (135-145) 03/02/25 06:40
Potassium 4.4 mmol/L (3.5-5.1) 03/02/25 06:40
BUN 23 mg/dl (7-17) H 03/02/25 06:40
Glucose 135 mg/dl (70-99) H 03/02/25 06:40
Calcium 9.2 mg/dl (8.4-10.2) 03/02/25 06:40
Patient Allergies
No Known Allergies Allergy (Verified 02/24/25 19:19)
Review of Systems
-
History Source: Patient
Constitutional: Sleep Disturbance
Respiratory: No Symptoms
Cardiac: No Symptoms
Abdomen/GI: No Symptoms
Neuro: Headache
Physical Exam
-
General: Appears Stated Age
HEENT: Normocephalic, Atraumatic and Anicteric
Neck: Full Range of Motion
Respiratory: No Dyspnea
Cardiac: No JVD
GI: Non-distended
Skin: Warm and Dry
Extremities: No Clubbing, No Cyanosis and No Edema
Psych: Intact Judgement/Insight
Extended Neurological Exam
Mood & Affect: Other (flat affect)
Attention Span & Concentration: Awake, Alert, Interactive and No Difficulty with 2 Step Request
Memory: Vague and Incomplete Historian
Tremor: Hand Tremor Absent and Head Tremor Absent
Speech: Quality Unremarkable, Quantity Unremarkable and Rate of Production Unremarkable
Cranial Nerve II: Left Eye: Visual Marks Grossly Intact
Cranial Nerve II: Right Eye: Visual Marks Grossly Intact
Cranial Nerves III, IV, : Extraocular Movement: Extraocular Movement Full in all Directions
Cranial Nerve VII: Facial Symmetry: Normal Facial Symmetry
Muscle Strength, Overall: Full Throughout
Muscle Bulk & Tone: Bulk Unremarkable and Tone Unremarkable
[2025-03-02] MEDS: ORETIC 12.5 MG PO (08:51)
[2025-03-02] MEDS: LIPITOR 40 MG PO (08:51)
[2025-03-02] MEDS: ZOLOFT 150 MG PO (08:51)
[2025-03-02] MEDS: PEPCID 20 MG PO (08:51)
[2025-03-02] MEDS: NORVASC 10 MG PO (08:51)
[2025-03-02] MEDS: ASPIR LOW (ENTERIC COATED) 81 MG PO (08:53)
[2025-03-02] MEDS: EVISTA 60 MG PO (08:53)
[2025-03-02] MEDS: DITROPAN 5 MG PO (08:53)
[2025-03-02] MEDS: ZESTRIL 40 MG PO (08:53)
--- NOTE | 2025-03-02 10:05 | CM ---
Patient seen at bedside with
IMM explained & signed. In chart-LOC change inpatient
MRI completed
PLAN: home, no needs anticipated
to transport
--- NOTE | 2025-03-02 11:58 | W.PN.HOSP.TC ---
Today's Communication/Plan
-
Discharge home today
Assessment / Plan
Assessment / Plan
Impression:
74 y.o female with new onset headaches localized to the right parietal and occipital region with sharp/stabbing quality and shooting sensation to the neck. No focal deficits. No rash. No fevers, chills or neck stiffness. No tearing or
conjunctival injection. CT head negative for acute intracranial process. Has outpatient w/u raising concern for occipital neuralagia. Differential includes migraine, GCA, unlikely dissection given duration of symptoms and otherwise stable.
Seen by neurology, patient still with headache.
Trigger points injection with no improvement.
MRI brain done showed
1. Mild diffuse cerebral and cerebellar volume loss.
2. Mild periventricular white matter leukoaraiosis.
3. Severe left-sided facet joint arthrosis and small central disc herniation at C3/C4 causing mild spinal cord compression and central canal stenosis.
Neurology commended:
Ketorolac, Diphenhydramine and Metoclopramide every 6 hours as needed for migraine
-give Valproic Acid 1000 mg now
-Rizatriptan 10 mg as needed, may repeat dosing after 2 hours if needed do not exceed greater than 30 mg in 24 hours
-methylprednisolone 1000 mg now
-increase sertraline from 100 mg to 150 mg daily
- Headaches improved, neurology recommending discharge home and rizatriptan 10 mg as needed and continue sertraline 150 mg daily.
Follow-up with pain management
Assessment/plan:
Headache - Occipital neuralgia/cervicogenic headache vs migraines or GCA
- admit to med/surg
- continue with analgesic measures IV porchloperazine + benadryl and dexamethasone
- prn toradol
- check esr
- CT negative, no indication for CTA/MRI
- neurology consultation
02/28
Patient still with headaches.
Neurology consulted.
Trial of Reglan/magnesium
03/01
MRI brain done showed
1. Mild diffuse cerebral and cerebellar volume loss.
2. Mild periventricular white matter leukoaraiosis.
3. Severe left-sided facet joint arthrosis and small central disc herniation at C3/C4 causing mild spinal cord compression and central canal stenosis.
Discussed with patient and at bedside.
Neurology recommendation as above
03/02
Headaches improved
Hypertension
Blood pressure elevated today morning at 178/62.
Resumed blood pressure meds
Hyperlipidemia.
Continue atorvastatin
Depression.
Continue sertraline
CODE STATUS: Full code
DVT prophylaxis:SCDs
Diet: cardiac diet
Disposition: Discharge home today.
Total time spent on today's encounter was 65 minutes which included time spent in counseling the patient/family regarding diagnosis and treatment plan as listed above, goals of care, and symptom management. Case was discussed with nursing staff,
specialists, and care coordinators/case management. All labs and imaging personally reviewed by me. Remainder the time spent in detailed review of previous records, lab data, imaging, and other medical provider documentation.
Anticipated Discharge: Today
Subjective/Interval History
-
Date of Service: March 02, 2025
Patient seen and examined at bedside, discussed with at bedside, pateint denies any chest pain or shortness of breath, no abdominal pain, no nausea, no vomiting, no diarrhea or constipation.
Objective Data
-
Labs:
Laboratory Results
03/02/25
06:40
WBC 8.6
Hgb 12.1
Hct 34.0 L
Plt Count 254
Sodium 136
Potassium 4.4
Chloride 104
Carbon Dioxide 24
BUN 23 H
Creatinine 0.7
Glucose 135 H
Calcium 9.2
Vital Signs:
Vital Signs
Temp Pulse Resp BP Pulse Ox
98.9 F 63 16 126/39 97
03/02/25 07:00 03/02/25 08:51 03/02/25 07:00 03/02/25 08:51 03/02/25 07:00
I&O
03/01/25 03/02/25 03/03/25
06:59 06:59 06:59
Intake Total 240 / 240 240 / 240 300 / 300
Balance 240 / 240 240 / 240 300 / 300
Physical Exam
-
General: Well Developed, Well Nourished, No Apparent Distress and Comfortable
HEENT: Normocephalic, Atraumatic, Moist Mucous Membranes, No Ptosis, PERRLA and Nose Appears Normal
Respiratory: Clear to Auscultation and Non Labored Respirations
Cardiac: Regular Rhythm and S1/S2
Breast: Deferred by me
GI: Soft, Nontender, Nondistended and Normal Bowel Sounds
Genito-urinary: No Costovertebral Tender
Musculoskeletal: No Clubbing, No Cyanosis and No Edema
Skin: Warm
Neuro: Awake, Alert, Oriented, AO x 3 and No Motor Deficits
Psych: Calm
Data Reviewed
-
Diagnostic Radiology: Image personally visualized and interpreted and Report Reviewed by me
CT Scan: Image personally visualized and interpreted and Report Reviewed by me
Ultrasound: Image personally visualized and interpreted and Report Reviewed by me
MRI: Image personally visualized and interpreted and Report Reviewed by me
Medical Tests (Nuc Med, Echo etc): Image personally visualized and interpreted and Report Reviewed by me
Labs: Labs Reviewed by me
Old Records: Reviewed
--- NOTE | 2025-03-02 12:09 | W.DCSUMMARY ---
Discharge Summary
Discharge Data
Date of Admission: 03/01/25
Date of Discharge: 03/02/25
-
Pending Results: No
Hospital Course
Hospital course
74 y.o female with new onset headaches localized to the right parietal and occipital region with sharp/stabbing quality and shooting sensation to the neck. No focal deficits. No rash. No fevers, chills or neck stiffness. No tearing or
conjunctival injection. CT head negative for acute intracranial process. Has outpatient w/u raising concern for occipital neuralagia. Differential includes migraine, GCA, unlikely dissection given duration of symptoms and otherwise stable.
Seen by neurology, patient still with headache.
Trigger points injection with no improvement.
MRI brain done showed
1. Mild diffuse cerebral and cerebellar volume loss.
2. Mild periventricular white matter leukoaraiosis.
3. Severe left-sided facet joint arthrosis and small central disc herniation at C3/C4 causing mild spinal cord compression and central canal stenosis.
Neurology commended:
Ketorolac, Diphenhydramine and Metoclopramide every 6 hours as needed for migraine
-give Valproic Acid 1000 mg now
-Rizatriptan 10 mg as needed, may repeat dosing after 2 hours if needed do not exceed greater than 30 mg in 24 hours
-methylprednisolone 1000 mg now
-increase sertraline from 100 mg to 150 mg daily
- Headaches improved, neurology recommending discharge home and rizatriptan 10 mg as needed and continue sertraline 150 mg daily.
Follow-up with pain management
During hospitalization patient was treated from the following
Headache - Occipital neuralgia/cervicogenic headache vs migraines or GCA
- admit to med/surg
- continue with analgesic measures IV porchloperazine + benadryl and dexamethasone
- prn toradol
- check esr
- CT negative, no indication for CTA/MRI
- neurology consultation
02/28
Patient still with headaches.
Neurology consulted.
Trial of Reglan/magnesium
03/01
MRI brain done showed
1. Mild diffuse cerebral and cerebellar volume loss.
2. Mild periventricular white matter leukoaraiosis.
3. Severe left-sided facet joint arthrosis and small central disc herniation at C3/C4 causing mild spinal cord compression and central canal stenosis.
Discussed with patient and at bedside.
Neurology recommendation as above
03/02
Headaches improved
Hypertension
Blood pressure elevated today morning at 178/62.
Resumed blood pressure meds
Hyperlipidemia.
Continue atorvastatin
Depression.
Continue sertraline
CODE STATUS: Full code
DVT prophylaxis:SCDs
Diet: cardiac diet
Disposition: Discharge home today.
Total time spent on today's encounter was 40 minutes which included time spent in counseling the patient/family regarding diagnosis and treatment plan as listed above, goals of care, and symptom management. Case was discussed with nursing staff,
specialists, and care coordinators/case management. All labs and imaging personally reviewed by me. Remainder the time spent in detailed review of previous records, lab data, imaging, and other medical provider documentation.
Anticipated Discharge: Today
Discharge Plan
-
Patient Disposition: Home (Routine Discharge)
Discharge Diagnosis/Procedures: Headache.
Paroxysmal hemicrania vs occipital neuralgia vs refractory migraine
Diet: As tolerated
Activity: As tolerated
Referrals:
Bin Middleton MD [Active, Neurology] - in two to four weeks
Danisha Adorno DO [Family Provider, Family Practice]
Basil Tirado MD [Non-Admitting Privileges, General] - in two to three days
Prescriptions:
New
rizatriptan 10 mg Tablet,Disintegrating
10 mg PO .d prn PRN (Reason: migraine) 30 Days Qty: 30 0RF
Rx Instructions:
10 mg PRN, may repeat after 2 hours if needed do not exceed > 30 mg in 24 hours.
sertraline 50 mg Tablet
150 mg PO DAILY Qty: 30 0RF
Continued
atorvastatin [Lipitor] 40 mg Tablet
40 mg PO DAILY
aspirin 81 mg Tablet,Delayed Release (Dr/Ec)
81 mg PO DAILY
calcium carbonate [Calcium 600] 600 mg calcium (1,500 mg) Tablet
600 mg PO DAILY
amlodipine 10 mg Tablet
10 mg PO DAILY
esomeprazole magnesium 40 mg Capsule,Delayed Release(Dr/Ec)
40 mg PO DAILY
raloxifene [Evista] 60 mg Tablet
60 mg PO DAILY
albuterol sulfate [ProAir HFA] 90 mcg/actuation Hfa Aerosol Inhaler
2 puff INHALATION Q6H PRN (Reason: asthma)
oxybutynin chloride 5 mg Tablet
5 mg PO DAILY
lisinopril 40 mg Tablet
40 mg PO DAILY
fluticasone propionate 50 mcg/actuation Webb,Suspension
1 spray INTRANASAL PRN PRN (Reason: allergies)
hydrochlorothiazide 12.5 mg Tablet
12.5 mg PO DAILY
cholecalciferol (vitamin D3) [Vitamin D3] 50 mcg (2,000 unit) Capsule
50 mcg PO DAILY
Discontinued
sertraline 100 mg Tablet
100 mg PO DAILY
Discharge Orders:
Discharge Patient (As Directed); Ordered 03/02/25
Ordered By: Kwaku Power
Discharge Date and Time
Print Language: UKRAINIAN
== END 2025-03-02 13:38 | disposition home or self-care (01) | DRG 552 ==
LOC: 3 WEST ACU 15:01
PROVIDERS: ADMITTING PHYSICIAN Internal Medicine; ATTENDING PHYSICIAN General Practice; CONSULT PHYSICIAN Psychiatry & Neurology Clinical Neurophysiology; EMERGENCY PHYSICIAN Student in an Organized Health Care Education/Training Program; FAMILY PHYSICIAN Family Medicine
DX: M54.81 Occipital neuralgia (principal); M50.01 Cervical disc disorder with myelopathy, high cervical region; M47.12 Other spondylosis with myelopathy, cervical region; G44.039 Episodic paroxysmal hemicrania, not intractable; G43.909 Migraine, unspecified, not intractable, without status migrainosus; F32.A Depression, unspecified; M48.02 Spinal stenosis, cervical region; I10 Essential (primary) hypertension; E78.00 Pure hypercholesterolemia, unspecified; Z92.3 Personal history of irradiation; Z90.710 Acquired absence of both cervix and uterus; Z79.82 Long term (current) use of aspirin; Z79.51 Long term (current) use of inhaled steroids; Z85.42 Personal history of malignant neoplasm of other parts of uterus
CPT/HCPCS: 70553; 80048; 80053; 85025; 85027; 85610; 85652; 85730; 86140; 86617; 86618; 96361; 96374; 96375; 99284; A9575

== ENCOUNTER 2025-03-09 11:38 | Emergency (ER) | payer OTHER, SELFPAY ==
[2025-03-09 11:43] VITALS: BP 140/62
--- NOTE | 2025-03-09 12:15 | ED.GENMED ---
History of Present Illness
General
Chief Complaint: Chest Pain
Source: patient
Exam Limitations: none
Time Seen by Provider: 03/09/25 12:10
Nursing documentation reviewed up to this point in time: agreed with
History of Present Illness
History of Present Illness:
The patient is a 74-year-old female with history of hypertension, hyperlipidemia, uterine cancer s/p hysterectomy who presents to the emergency department for evaluation of chest pain. Patient states while she was lying in bed this morning around 6
AM she had a pressure sensation in her mid chest which radiated up into her jaw, most notable on the right side. She states this sensation lasts about 1 minute and then resolved. She denies any associated shortness of breath, back pain,
dizziness/lightheadedness, diaphoresis, nausea or vomiting.
Patient has been asymptomatic since. However�she did contact her primary care provider who recommended she be evaluated the emergency department.
Patient denies any recent fever or cough. She has no personal history of coronary artery disease although her father did of a heart attack in his 70s.
Patient is currently being treated for Lyme disease with doxycycline and prednisone.
Past History
Past History
ED Past Medical History: None
ED Past Surgical History: None
Review of Systems
Review of Systems
Allergies reviewed?: Yes
All Other Systems: ROS reviewed and negative except as documented in HPI and ROS
Phy Exam
Physical Exam
Physical Exam:
Vitals: Mildly hypertensive, otherwise vital signs stable. Afebrile
General: Patient is very well appearing, no acute distress. Nontoxic.
Skin: Warm and dry, no rashes or lesions
Head: Normocephalic, atraumatic
Eyes: Sclera nonicteric. EOMs intact. No nystagmus.
Throat: Protecting airway
Neck: Normal ROM, no cervical spine tenderness, no meningismus
Cardiac: Regular rate and rhythm, no murmurs. No reproducible chest wall tenderness. 2+ palpable radial pulses bilaterally
Pulm: Normal respiratory effort, no wheezes, rales, rhonchi heard on exam
.
Abdomen: Abdomen soft and nontender.
Extremities: No evidence of cyanosis or edema.
Neuro: AAOx3. Grossly intact.
Psychiatric: Normal affect.
Scores
Heart Score for Chest Pain Patients
STEMI patient?: No
History: Slightly or Non-Suspicious
ECG: Normal
Age: >/= 65 years
Risk Factors: >/= 3 Risk Factors or History of CAD
Troponin: </= Normal Limit
Heart Score for Chest Pain Patients: 4
Heart Score Risk: 20.3% MACE over next 6 weeks
Course
Orders/Labs/Results
Orders:
Orders
03/09/25 11:38
Electrocardiogram (*1) Urgent
Reason for Study: Chest Pain
EKG- Treatment ONCE
03/09/25 12:49
CR Chest - 2 Views Urgent
Comment:
Reason For Exam: Chest pain
03/09/25 12:58
Complete Blood Count/With Diff Urgent
Comprehensive Metabolic Panel Urgent
Troponin I Urgent
03/09/25 15:48
Troponin I Urgent
03/09/25 16:00
Electrocardiogram (*1) Urgent
Reason for Study: Chest Pain
EKG- Treatment ONCE
Abnormal Lab Results
03/09/25
12:58
WBC 18.7 H 10^3/uL
(4.8-10.8)
RBC 4.07 L 10^6/uL
(4.20-5.40)
Hct 35.5 L %
(37.0-47.0)
MCH 31.2 H pg
(27.0-31.0)
MPV 10.7 H fL
(7.4-10.4)
Abs Immat Gran (auto) 0.2 H 10^3/uL
(0-0.05)
Absolute Neuts (auto) 16.3 H 10^3/uL
(1.4-6.5)
Immature Gran % 1.1 H %
(0-0.5)
Neutrophils % 87.0 H %
(42.2-75.2)
Lymphocytes % 8.7 L %
(20.5-51.1)
Sodium 133 L mmol/L
(135-145)
BUN 18 H mg/dl
(7-17)
Glucose 123 H mg/dl
(70-99)
03/09/25 12:58
03/09/25 12:58
Vital Signs
Initial and Last Documented VS:
Initial Vital Signs
Temp Pulse Resp BP Pulse Ox
98.1 F 71 16 140/62 100
03/09/25 11:43 03/09/25 11:43 03/09/25 11:43 03/09/25 11:43 03/09/25 11:43
Last Documented Vital Signs
Temp Pulse Resp BP Pulse Ox
98.1 F 66 18 140/64 98
03/09/25 11:43 03/09/25 16:15 03/09/25 15:45 03/09/25 15:00 03/09/25 16:15
MDM/Problems Addressed
Differential Diagnosis Includes:
Not limited to: GERD, muscular strain/spasm, pneumothorax, pneumonia, acute coronary syndrome, etc.
MDM/Problems Addressed:
74 y.o female presenting after episode of chest pain occurring this morning which lasted one minute. She has been asymptomatic since. These symptoms were nonexertional and nonpleuritic. No associated shortness of breath, lightheadedness/dizziness,
nausea, diaphoresis, or back pain. Patient has been asymptomatic since. No personal hx of CAD. Vitals and physical exam as above. Initial EKG NSR without acute ischemic changes. ED plan: labs, serial troponins, chest xray.
Update: Labs reviewed. CBC significant for leukocytosis which I suspect is reactive secondary to current steroid use for lyme disease. Chemistry unremarkable. She has had serial troponins which were undetectable x2 with nonischemic EKG. CXR without
acute findings. Patient has remained asymptomatic and stable in ED with negative workup. Very low suspicion for acute cornoary syndrome or other emergent process. Possible component of GERD secondary to doxycycline. Advised to take > 1 hr priro to
laying flat at night. Given kali factors will place on chest pain hot line for prompt f/u. Strict return precautions discussed. Patient comfortable with plan.
Chronic conditions affecting care:
Hypertension, hyperlipidemia
Acute Exacerbation and/or Progression of Chronic Illness:
Acutely hypertensive
*Radiology
Radiology exam reviewed: preliminary read by ED provider (Chest x-ray reviewed by me-no acute abnormalities) and radiology read reviewed
*Pulse Oximetry
Patient hypoxic: no (100% on room air)
*EKG
Interpreted by ED Provider?: Yes
EKG Intrepretation Date: 03/09/25
Interpretation: normal
Comparison EKG: no changes
Heart Rate: 63
Rate: normal
Rhythm: sinus
[place]: normal axis
Interval: normal QT interval
QRS Pattern: normal QRS
Ischemia: no ischemia
*Orientation And Mobility Instructor Interpretation
Rate: normal
Interpretation: normal
Heart Rate: 64
Rhythm: sinus
*Critical Care Note
Total Time (30-74mins, 75-104mins- exclusive of procedures): Not Applicable
Data Reviewed
Review of Other/Old Records Reveals: Testing (Cardiac echo from 07/19/2023-EF 60 to 65%)
ED Attending Note
-
Portions of this chart may have been created with voice recognition software.� Occasional wrong word or��sound alike� substitutions may have occurred due to the inherent limitations of voice recognition software.
Discharge Plan
Departure
Patient Disposition: Home (Routine Discharge)
Date of Disposition: 03/09/25
Time of Disposition: 17:10
Patient with high blood pressure during this ER visit?: Yes
Condition: Good
Covid-19: Not Applicable
Discharge Problem:
Chest pain
Instructions: Chest pain - Discharge instructions, Chest Pain CBC Follow Up, BLOOD PRESSURE
Prescriptions:
No Action
atorvastatin [Lipitor] 40 mg Tablet
40 mg PO DAILY
aspirin 81 mg Tablet,Delayed Release (Dr/Ec)
81 mg PO DAILY
calcium carbonate [Calcium 600] 600 mg calcium (1,500 mg) Tablet
600 mg PO DAILY
amlodipine 10 mg Tablet
10 mg PO DAILY
esomeprazole magnesium 40 mg Capsule,Delayed Release(Dr/Ec)
40 mg PO DAILY
raloxifene [Evista] 60 mg Tablet
60 mg PO DAILY
albuterol sulfate [ProAir HFA] 90 mcg/actuation Hfa Aerosol Inhaler
2 puff INHALATION Q6H PRN (Reason: asthma)
oxybutynin chloride 5 mg Tablet
5 mg PO DAILY
lisinopril 40 mg Tablet
40 mg PO DAILY
fluticasone propionate 50 mcg/actuation Husser,Suspension
1 spray INTRANASAL PRN PRN (Reason: allergies)
hydrochlorothiazide 12.5 mg Tablet
12.5 mg PO DAILY
cholecalciferol (vitamin D3) [Vitamin D3] 50 mcg (2,000 unit) Capsule
50 mcg PO DAILY
rizatriptan 10 mg Tablet,Disintegrating
10 mg PO .d prn PRN (Reason: migraine) 30 Days Qty: 30 0RF
Rx Instructions:
10 mg PRN, may repeat after 2 hours if needed do not exceed > 30 mg in 24 hours.
sertraline 50 mg Tablet
150 mg PO DAILY Qty: 30 0RF
Referrals:
Danisha Adorno DO [Family Provider, Family Practice]
Jonathan Jara MD [Active, Cardiology] - Follow up in 2-3 days
Activity Restrictions/Additional Instructions:
RETURN TO THE EMERGENCY DEPARTMENT WITH ANY CHEST PAIN, CHEST PAIN WORSE WITH EXERTION OR ASSOCIATED SHORTNESS OF BREATH, NAUSEA, SWEATINESS, LIGHTHEADEDNESS, ANY SEVERE HEADACHE, FEVERS, OR ANY OTHER CONCERNS
- As discussed that your white blood cell count was elevated in the emergency department which I suspect is likely secondary to your steroid use. Please have this repeated with your primary care to ensure it is trending down appropriately. Return
with any infectious symptoms.
- Continue to take your doxycycline and prednisone as prescribed by your PCP. You should avoid taking your doxycycline less than 1 hour prior to laying flat as it may cause some esophageal irritation. Please be diligent with sun protection as
doxycycline can make you more sensitive to the sun.
- Stay well-hydrated.
- I have placed you on the chest pain hotline for further cardiology follow-up. You should contact the planner scheduler office and do not hear from them in the next 48 hours.
Monitor your symptoms closely and return to the emergency department with any acute worsening/new symptoms or any other concerns
Interventions
Interventions:
*Risk Screen - Suicide Last Done: 03/09/25 11:43
*General Assessment Last Done: 03/09/25 12:40
*Neglect/Abuse Screening Last Done: 03/09/25 11:43
*ED- Fall Risk Assessment Last Done: 03/09/25 12:40
*ED COVID-19 Vaccine History Last Done: 03/09/25 12:40
*Nursing Disposition Last Done: 03/09/25 17:31
ED- Cardiac Assessment Last Done: 03/09/25 12:40
Discharge Date and Time
Discharge Date/Time: 03/09/25 17:34
Print Language: PASHTO
[2025-03-09 12:43] VITALS: BP 125/55
[2025-03-09 13:00] VITALS: BP 140/50
[2025-03-09 13:13] LABS: % Basophils 0.1 % (0-2); % Immature Granulocytes 1.1 % (0-0.5); % Lymphocytes 8.7 % (20.5-51.1); % Monocytes 3.1 % (1.7-9.3); Absolute Immature Granulocytes 0.2 10^3/uL (0-0.05); Absolute Lymphocytes 1.6 10^3/uL (1.2-3.4); Absolute Monocytes 0.6 10^3/uL (0.1-0.6); Absolute Neutrophils 16.3 10^3/uL (1.4-6.5); Hematocrit 35.5 % (37.0-47.0); Hemoglobin 12.7 g/dL (12.0-16.0); Mean Corp Hgb Conc. 35.8 g/dL (33.0-37.0); Mean Corpuscular Hgb 31.2 pg (27.0-31.0); Mean Corpuscular Volume 87.2 fL (81.0-99.0); Mean Platelet Volume 10.7 fL (7.4-10.4); Nucleated Red Blood Cells % 0 %; Platelet Count 237 10^3/uL (130-400); Red Blood Cell Count 4.07 10^6/uL (4.20-5.40); Red Cell Dist. Width 13.4 % (11.5-14.5); White Blood Cell Count 18.7 10^3/uL (4.8-10.8)
[2025-03-09 13:45] LABS: Troponin I < 0.012 ng/ml
[2025-03-09 13:54] LABS: ALT (SGPT) 18 U/L (0-35); AST (SGOT) 17 U/L (14-36); Albumin 3.9 g/dl (3.5-5.0); Alkaline Phosphatase 61 U/L (38-126); Blood Urea Nitrogen 18 mg/dl (7-17); Calcium 9.6 mg/dl (8.4-10.2); Carbon Dioxide 22 mmol/L (22-30); Chloride 103 mmol/L (98-107); Glucose 123 mg/dl (70-99); Potassium 4.4 mmol/L (3.5-5.1); Sodium 133 mmol/L (135-145); Total Bilirubin 0.7 mg/dl (0.2-1.3); Total Protein 6.9 g/dl (6.3-8.2); eGFR > 60.00
[2025-03-09 14:44] VITALS: BP 143/57
[2025-03-09 15:00] VITALS: BP 140/64
[2025-03-09 16:21] LABS: Troponin I < 0.012 ng/ml
== END 2025-03-09 17:34 | disposition home or self-care (01) ==
LOC: EMR 11:38
PROVIDERS: Physician Assistant; EMERGENCY PHYSICIAN Emergency Medicine; FAMILY PHYSICIAN Family Medicine
DX: R07.89 Other chest pain (principal); I10 Essential (primary) hypertension; E78.5 Hyperlipidemia, unspecified
CPT/HCPCS: 99285; 71046; 80053; 84484; 85025; 93005

== ENCOUNTER → 2025-08-23 09:45 | Outpatient (REF) | payer OTHER, SELFPAY | LOC: RAD 09:45 | PROVIDERS: ATTENDING PHYSICIAN Internal Medicine; FAMILY PHYSICIAN Family Medicine | DX: R13.19 Other dysphagia (principal) | CPT/HCPCS: 74221 ==

== ENCOUNTER → 2025-09-22 08:09 | Outpatient (REF) | payer OTHER, SELFPAY | LOC: RAD 08:09 | PROVIDERS: ATTENDING PHYSICIAN Registered Nurse; FAMILY PHYSICIAN Family Medicine | DX: I73.9 Peripheral vascular disease, unspecified (principal); I77.1 Stricture of artery | CPT/HCPCS: 93922; 93925; 93978 ==